=== PATIENT | female | born 2005 | race Caucasian/White ===

== ENCOUNTER 2025-03-13 06:50 | Outpatient (REF) | payer BC, SELFPAY ==
--- OUTSIDE RECORDS SUMMARY | 2025-03-13 06:54 | XMS_ITS | Data Portability ---
Author Organization [facility] Address [address] [place] [address] Assessment No assessment recorded. Plan of Treatment Reminders Order Date Submit Date Provider Last Modified By Organization Details Last Modified Time Details Appointments None recorded. Lab rapid strep group A, throat 2023 024 [email or web address] _[facility], [address] [place] [address], [phone], 17:50:35 SARS CoV 2 (COVID-19) Ag, QL, IA, upper respiratory specimen 2023 [email or web address] [facility], [address] [place] [address], [phone], 17:50:36 Referral None recorded. Procedures None recorded. Surgeries None recorded. Imaging None recorded. Medication Orders None recorded. Patient TargetsNo targets recorded. Patient Instructions Encounter Date Encounter Id Patient Instructions Last Modified By Organization Details Last Modified Time 06/20/2024 [id number] upper respirator y infection (cold): care instructions [email or web address] Not available 06/20/2024 17:50:34 Reason for Referral None Reported. Results Created Date Observation Date Name Description Value Unit Range Abnormal Flag Note LastModifiedBy Organization Detail LastModifiedTime 06/20/20 24 06/20/2024 rapid strep group A, throa t Unknown Analyte negati ve Not Available [facility] [address] [place], [phone], 06/20/2024 17:37:04 06/20/20 24 06/20/2024 SARS CoV 2 (COVI D-19) Ag, QL, IA, upper respi rator y speci men Unknown Analyte negati ve Not Available _ [facility] [address] [place] [address], [phone], 06/20/2024 17:37:14 Result Notes None recorded. Problems Name Problem SNOMED Code Status Onset Date Resolution Date Notes Provider Name and Address Organization Details Recorded Time Anxiety 90357116 Active [facility] null, [place] - [facility] 17:34:22 Depressive disorder 06126427 Active [facility] [place] - [facility] 17:34:31 Problem Notes None recorded. Medical Equipment None Reported. Allergies No known drug allergies Medications Name Sig Start Date Stop Date Status Note LastModified by Organization Details LastModified Time intrauterine device (IUD) Take by intrauterin e route. active Not Available Not Available No t Available fluoxetine active Not Available Not Av ailable Not Available Vitals Date Recorded Body height Body mass index (BMI) Body mass index (BMI) [Percentile] Per age and sex Body weight Body temperature Oxygen saturation Oxygen saturation in Arterial blood by Pulse oximetry Heart rate Respiratory rate Systolic And Diastolic Provider Name and Address Organization Details Last Updated DateTime 165.1 cm 23.3 kg/m2 66 % 31162.9 3 g 98.9 [degF] 100 % 100 % 112 /min 16 /min 122/80 mm[Hg] [facility]re[facility] [place] - [facility] 17:36:38 Social History Question Answer Notes LastModified by Organizat ion Details LastModified Time Tobacco Smoking Status Never Smoker [facility] [place], [place] - [facility] 06/20/2024 17:35:07 Have You Had A Flu Shot This Season? No Information not available 06/20/2024 If No, Would You Like A Flu Shot Today? No Information not available 06/20/2024 Have You Recently Traveled Abroad? No Information not available 06/20/2024 Sex: Unknown Functional Status Question Answer Note LastModified by Organizat ion Details LastModified Time Do you use any illicit or recreational drugs? No Information not available 06/20/2024 Do you or have you ever used any other forms of tobacco or nicotine? No Information not available 06/20/2024 What is your level of alcohol consumption? None Information not available 06/20/2024 Mental Status None recorded. Family History Relationship Description Onset Age of this Age Resolved Age Notes LastModified by Organization Details LastModified Time Father No current problems or disability Not available 06/20 17:34:52 Mother No current problems or disability Not available 06/20 17:34:52 Medical History No medical history recorded. Gynecological History Statement/Question Response Date of LMP 04/18/2024 Obstetrics History GPAL:G 0 P 0 0 0 0 Past Encounters Encounter ID Performer Location Encounter Start Date Encounter Closed Date Diagnosis/Indication Diagnosis SNOMED-CT Code Diagnosis ICD10 Code Diagnosis Note [id number] [facility] [address] [place] [address] 06/20/2024 17:28:33 06/20/2024 17:52:13 Upper respiratory infection 31778386 J06.9 Patient presented with symptoms of upper respirator y infection. Advised to drink plenty of fluids, run a cool-mist humidifier in room at night, gargle salt water for sore throat, and get plenty of rest. Patient should avoid over-exert ion and reduce exposure to irritants such as smoke, cold, dry air, and dust.Treat ment currently involves symptomati c relief. Nasal sprays like nasonex and flonase (or generic) as well as neti pot to help clear sinuses Patient may take acetaminop hen or ibuprofen as directed to reduce fever and body aches.Anti histamine and decongesta nt usage was discussed and recommenda tions made.Helena sutton understood these instructio ns and will follow up in the office in 10 days to 2 weeks if symptoms not improving. ER if any shortness of breath/re st pain or worsening. Thank you for using [facility] today, please feel free to contact our office if you have any questions or concerns. Health Concerns Section Related Observation LastModified by Organization Detai ls LastModified Time None Recorded Concern Status LastModified by Organization Details LastModified Time None Recorded Advance Directives Directive None Recorded Payers Insurance Date Sequence Insurance Name Policy Number Policy Mercado Covered Member ID Mercado Member ID Guarantor Name 06/20/2024 1 [employer]: [employer] (HMO) [id number] Luann Alejandroanil [id number] Diana Linares Notes Date Note Type Note Provider Name and Address Organization Details Recorded Time 06/20/2024 text/html 18y/o female with sore throat, body aches, chills, headache since last night. No fevers. Took apap earlier with some improvement.No cough, some congestion. MINDY Valderrama [address] [place], [address], [place] - [facility] 06/20/2024 18:00:54 OBGyn Episode No OBEpisode recorded.
== END 2025-03-13 06:51 | disposition home or self-care (01) ==
LOC: HO.UMASIMG 06:50
PROVIDERS: Visit Provider Internal Medicine
DX: Z13.89 Encounter for screening for other disorder (principal)